=== PATIENT | female | born 1965 | race African-American/Black ===

== ENCOUNTER 2016-11-06 08:05 | Day surgery (SDC) | payer MEDICARE, OTHER ==
--- NOTE | ~2016-11-06 | EGD ---
EGD REPORT [facility] [address] [address] NAME: SANIA CRESPO : 61 STATUS : REG [facility]#: [id number] AGE: 51 ADM/REG DATE : 11/06/16 MR#: [id number] REPORT SERV DATE: 11/06/16 DICTATED BY: JOSELUIS SHELBY DATE: 11/06/16 REPORT STATUS : Draft TRANSCRIBED BY: [facility] DATE: 11/06/16 Endoscopy Center Patient Name: Sania Crespo Date of : 1965 Attending MD: JOSELUIS SHELBY MD Procedure Date No Time: 11/06/2016 Procedure: Colonoscopy Indications: Screening for colorectal malignant neoplasm Referring MD: DARION VIDES Medicines: Propofol per Anesthesia Complications: No immediate complications. Procedure: Pre-Anesthesia Assessment: - ASA Grade Assessment: II - A patient with mild systemic disease. After I obtained informed consent, the scope was passed under direct vision. Throughout the procedure, the patient's blood pressure, pulse, and oxygen saturations were monitored continuously. The CF [id number] was introduced through the anus and advanced to the terminal ileum. The colonoscopy was performed without difficulty. The patient tolerated the procedure well. The quality of the bowel preparation was good. Findings: The perianal and digital rectal examinations were normal. The terminal ileum appeared normal. The colon (entire examined portion) appeared normal. A sessile polyp was found in the proximal transverse colon. The polyp was 3 mm in size. The polyp was removed with a cold biopsy forceps. Resection and retrieval were complete. A sessile polyp was found in the distal transverse colon. The polyp was 5 mm in size. The polyp was removed with a cold snare. Resection and retrieval were complete. A sessile polyp was found in the proximal descending colon. The polyp was 6 mm in size. The polyp was removed with a hot snare. Resection and retrieval were complete. Non-bleeding internal hemorrhoids were found during retroflexion and were mild, medium-sized and Grade I (internal hemorrhoids that do not prolapse). Impression: - The examined portion of the ileum was normal. - The entire examined colon is normal. - One 3 mm polyp in the proximal transverse colon. Resected and retrieved. - One 5 mm polyp in the distal transverse colon. EGD REPORT [address] [address] NAME: SANIA CRESPO : [birth year] STATUS : REG [facility]#: [id number] AGE: 51 ADM/REG DATE : 11/06/16 MR#: [id number] REPORT SERV DATE: 11/06/16 DICTATED BY: JOSELUIS SHELBY DATE: 11/06/16 REPORT STATUS : Draft TRANSCRIBED BY: [employer] DATE: 11/06/16 Resected and retrieved. - One 6 mm polyp in the proximal descending colon. Resected and retrieved. - Non-bleeding internal hemorrhoids. Recommendation: - Patient has a contact number available for emergencies. The signs and symptoms of potential delayed complications were discussed with the patient. Return to normal activities tomorrow. Written discharge instructions were provided to the patient. - Return to previous diet. - Continue present medications. - Await pathology results. - Repeat colonoscopy in 3 - 5 years for surveillance based on pathology results. - Return to my office as previously scheduled. - Discharge patient to home. Procedure Code(s): --- Professional --- 82985, Colonoscopy, flexible, proximal to splenic flexure; with removal of tumor(s), polyp(s), or other lesion(s) by snare technique 38130, 59, Colonoscopy, flexible, proximal to splenic flexure; with biopsy, single or multiple Diagnosis Code(s): --- Professional --- K64.0, First degree hemorrhoids D12.4, Benign neoplasm of descending colon D12.3, Benign neoplasm of transverse colon Z12.11, Encounter for screening for malignant neoplasm of colon CPT copyright 2013 [employer]. All rights reserved. The codes documented in this report are preliminary and upon ship ceiler review may be revised to meet current compliance requirements. Joseluis Shelby MD JOSELUIS SHELBY MD 11/06/2016 10:24 AM This report has been signed electronically. Number of Addenda: 0 Note Initiated On: 11/06/2016 9:42 AM Scope Withdrawal Time 0 hours 15 minutes 52 seconds EGD REPORT [facility] [address] [address] NAME: SANIA CRESPO : [birth year] STATUS : REG [facility] PAT#: [id number] AGE: 51 ADM/REG DATE : 11/06/16 MR#: [id number] REPORT SERV DATE: 11/06/16 DICTATED BY: JOSELUIS SHELBY DATE: 11/06/16 REPORT STATUS : Draft TRANSCRIBED BY: [employer] DATE: 11/06/16 [address] [id number]
[~2016-11-06 08:05] MED LIST: ADVIL PO; ALEVE220 MG PO; DOES NOT KNOW MEDS; FLEXERIL5 MG PO; FLOVENT110 INH; INHALER INH; MUCUS RELIEF OR; NEUR300 PO; NORV10 PO; PEPCID40 MG OR; ZESTORETIC1 TA1 PO
== END 2016-11-06 23:59 | disposition home or self-care (01) ==
LOC: DMU 08:05
PROVIDERS: Internal Medicine Gastroenterology
PROC: 0DBL8ZZ Excision of Transverse Colon, Via Natural or Artificial Opening Endoscopic (ICD-10-PCS; principal; 2016-11-06 10:00)
PROC: 0DBM8ZZ Excision of Descending Colon, Via Natural or Artificial Opening Endoscopic (ICD-10-PCS; 2016-11-06 10:00)
DX: Z12.11 Encounter for screening for malignant neoplasm of colon (principal); K64.0 First degree hemorrhoids; D12.3 Benign neoplasm of transverse colon; D12.4 Benign neoplasm of descending colon; I10 Essential (primary) hypertension; K21.9 Gastro-esophageal reflux disease without esophagitis; J45.909 Unspecified asthma, uncomplicated; F17.200 Nicotine dependence, unspecified, uncomplicated; Z79.1 Long term (current) use of non-steroidal anti-inflammatories (NSAID); Z79.51 Long term (current) use of inhaled steroids; Z88.5 Allergy status to narcotic agent; Z79.899 Other long term (current) drug therapy
CPT/HCPCS: 88305

== ENCOUNTER 2016-11-07 05:04 | Observation (INO) | payer MEDICARE, OTHER ==
--- NOTE | ~2016-11-07 | CN ---
Consultation Report [place] [id number] [facility] [place]. [address] NAME: SANIA CRESPO : 61 STATUS : ADM Alisha PAT#: [id number] AGE: 51 ADM/REG DATE : 11/07/16 MR#: [id number] REPORT SERV DATE: 11/07/16 DICTATED BY: ANTONIO MARTE DATE: 11/07/16 REPORT STATUS : Draft TRANSCRIBED BY: JORDAN DATE: 11/07/16 CONSULTATION DATE OF CONSULTATION: Sania Crespo is a 51-year-old female, who enters with chest discomfort. REFERRING PHYSICIAN: Tj Bullock M.D. HISTORY OF PRESENT ILLNESS: Mrs. Sania Crespo underwent a routine screening colonoscopy yesterday. That night while watching TV, she developed a pressure in her chest which she said it felt like several people sitting on her chest. This radiated down her left arm and back and lasted for about 30 to 40 minutes. It then was relieved but then came back, and was off and on until coming to the emergency room. REVIEW OF SYSTEMS: No previous exertional discomfort, dyspnea, PND, KRAUS, palpitations, syncope, presyncope, fever, chills, change in bowel habits, and rashes. Rest is negative. PAST MEDICAL HISTORY: 1. Hypertension, longstanding. 2. GERD. SOCIAL HISTORY: She smokes, but does not drink. She is currently disabled, due to back pain. FAMILY HISTORY: Negative for early heart disease. PHYSICAL EXAMINATION: VITAL SIGNS: Blood pressure is 163/84, pulse is 75. She is afebrile. GENERAL: Resting comfortably. EYES: PERRLA. LUNGS: No labored use of accessory muscles. Without rales or wheezes. COR: PMI is not displaced. No thrills or heaves. NL S1 and S2. No S3, murmur, click or rub. PULSES: Carotids without bruits. ABD: +BS, nontender. EXT: No cyanosis, clubbing or edema. SKIN: No petechiae. NEURO: Alert and oriented. Does not appear anxious or depressed. LABORATORY EVALUATION: EKG shows no acute changes. Troponin is negative. ASSESSMENT: At this time, we will obtain a stress test, if second troponin is negative. Consultation Report [place] [id number] [facility]. [address] NAME: SANIA CRESPO : 61 STATUS : ADM Alisha PAT#: [id number] AGE: 51 ADM/REG DATE : 11/07/16 MR#: [id number] REPORT SERV DATE: 11/07/16 DICTATED BY: ANTONIO MARTE DATE: 11/07/16 REPORT STATUS : Draft TRANSCRIBED BY: JORDAN DATE: 11/07/16 GG/SANDRAL Antonio Marte M.D. / [id number] CC: Tj Bullock M.D.
--- NOTE | ~2016-11-07 | DS ---
Discharge Summary [facility] [address] [place]. [address] NAME: JERRI CRESPO : 61 STATUS : ADM Alisha PAT#: [id number] AGE: 51 ADM/REG DATE : 11/07/16 MR#: [id number] REPORT SERV DATE: 11/08/16 DICTATED BY: JOAN ALANIZ DATE: 11/08/16 REPORT STATUS : Draft TRANSCRIBED BY: [employer] DATE: 11/08/16 ADMISSION DATE: 11/07/2016 DISCHARGE DATE: 11/08/2016 HOSPITAL COURSE: This is a 51-year-old -[place] female known history of hypertension, as well as having a significant smoking history, at least 30 pack years, low back pain. She had a routine colonoscopy was uneventful in terms of postoperative course then started to develop chest pain, left shoulder and left arm numbness, tingling, had a leukocytosis and a CTA of the chest is negative. She also had a CT of the brain given her neurological symptoms that was also negative for any stroke or mass. Her pathology was indicative of stroke. The patient was noted to have significant troponin, anemia, elevated troponin 1.10, it is peak at 1.33. She had a cholesterol of , LDL of 181. Procalcitonin was negative despite leukocytosis. Her glucose on the day of discharge was 82. Recommend outpatient A1c. Blood cultures showed no growth to date. The patient had a heart catheterization for class IV angina and NSTEMI, showed severe flow-limiting lesion in mid LAD consistent with culprit for the patient's non- Q-wave RI, severe flow-limiting lesion, distal left circumflex, normal LVEDP, LVEF 50%. As a result, did a PCI of mid LAD with YESSY as well as a YESSY placement to the distal left circumflex, needs dual anti-platelet for at least a year, aspirin indefinitely. We will also place her on Backbone therapy of beta-blockade and ARB. We would hold her ARB, losartan if her systolic is less than 110. I placed her on Lipitor 40. The patient needs to stop smoking. Get an outpatient pulmonary function test in four weeks. Follow up with PCP in two weeks. Follow up Cardiology in four to eight weeks as well. DISCHARGE MEDICATIONS: Lipitor 40 p.o. daily, carvedilol 3.125 p.o. b.i.d., aspirin 81 p.o. daily, Plavix 75 p.o. daily, losartan 25 p.o. daily hold if systolic less than 110. The patient states she is going to quit cold turkey. DISCHARGE DIAGNOSES: 1. Guc-SW-yveehfram myocardial infarction. 2. Hyperlipidemia. 3. Gastroesophageal reflux disease. 4. Coronary artery disease. 5. Clinical chronic obstructive pulmonary disease. All questions were answered. It took well over 30 minutes to do. ERNESTINAT/JORDAN Joan Alaniz DO / [id number] Discharge Summary [address] [address] NAME: JERRI CRESPO : 61 STATUS : ADM Alisha PAT#: [id number] AGE: 51 ADM/REG DATE : 11/07/16 MR#: [id number] REPORT SERV DATE: 11/08/16 DICTATED BY: JOAN ALANIZ DATE: 11/08/16 REPORT STATUS : Draft TRANSCRIBED BY: JORDAN DATE: 11/08/16 CC: DO Abby Holland M.D.
--- NOTE | ~2016-11-07 | HP ---
History And Physical [place] [id number] [facility] [place]. [address] NAME: JERRI CRESPO : 61 STATUS : ADM Alisha PAT#: [id number] AGE: 51 ADM/REG DATE : 11/07/16 MR#: [id number] REPORT SERV DATE: 11/07/16 DICTATED BY: HUSSEIN CALLAHAN DATE: 11/07/16 REPORT STATUS : Draft TRANSCRIBED BY: [employer] DATE: 11/07/16 DATE OF ADMISSION: 11/07/2016 CHIEF COMPLAINT: Chest pain. HISTORY OF PRESENT ILLNESS: This is a 51-year-old female with history of hypertension and status post colonoscopy today which was done in routine followup for screening and who presents to the emergency room at [facility] with chest pain. History is obtained from the patient, and reviewing data available on the [employer] system. According to Mrs. Crespo she went home after her colonoscopy and she was told they did some scrapings there, otherwise it was uneventful. She was fine until about 10 o'clock at night, when she was in bed and laying down doing nearly nothing, when she started experiencing substernal chest pain. Chest pain was radiating to the left shoulder and into the left arm as well. Her arm started tingling and feeling numb as well. The pain was 10/10 in intensity lasting for about 15 to 20 minutes at a time, would go away and come back. She became concerned she was having a heart attack and decided to come to the emergency room. In the emergency room, initial workup revealed she had leukocytosis of white blood cell count of 21,800, troponin were negative. There were no EKG changes. A CTA of the chest, CT abdomen and pelvis, and CT of the brain were all unremarkable. Hospitalist Service is asked to admit her for further evaluation and treatment. At the time of my evaluation, Mrs. Crespo had no chest pain after she was treated in the emergency room. She denied any palpitations or orthopnea. She did have a cough, which she says is her usual attributed to her smoking habit. She denied any hemoptysis, night sweats, or weight loss. She did not have any falls or loss of consciousness. No history of fevers or chills. No history of nausea or vomiting, but she did have some diaphoresis with the pain. No history of dysuria, hematemesis, hematochezia, or hematuria. No other history of recent travel or exposures other than those mentioned above. PAST MEDICAL HISTORY: Significant for history of hypertension and routine colonoscopy that she had today. SOCIAL HISTORY: She has about 25- to 30-pack year history of smoking, continues to do so. Denied any alcohol use. She smokes marijuana at least twice daily. She is currently disabled due to her back pain. FAMILY HISTORY: Noncontributory. MEDICATIONS: Her medications at home were reviewed by me in the chart today and reordered by me. REVIEW OF SYSTEMS: As in history of present illness. All other systems were reviewed in detail and are quite History And Physical [address] [address] NAME: JERRI CRESPO : 61 STATUS : ADM Alisha PAT#: [id number] AGE: 51 ADM/REG DATE : 11/07/16 MR#: [id number] REPORT SERV DATE: 11/07/16 DICTATED BY: HUSSEIN CALLAHAN DATE: 11/07/16 REPORT STATUS : Draft TRANSCRIBED BY: JORDAN DATE: 11/07/16 unremarkable. PHYSICAL EXAMINATION: GENERAL: This is a pleasant 51-year-old, not in any acute distress. HEENT: Head is atraumatic and normocephalic. She is alert, awake, oriented to time, place, and person. Pupils are equal, reacting to light and accommodating. External ocular muscles are intact. Membranes are moist and pink. Sclerae are nonicteric. NECK: Supple with no jugular venous distention, lymphadenopathy, or thyromegaly. LUNGS: Clear to auscultation with no wheezes, rubs, or crackles. HEART: Heart sounds were regular with no murmurs, rubs, or gallops. ABDOMEN: Soft and nontender. Bowel sounds are present. EXTREMITIES: No cyanosis, clubbing, or edema. NEUROLOGIC: Grossly intact. No focal sensory or motor deficits. Higher functions appeared intact. Gait was not examined at this time. VITAL SIGNS: Her temperature today was 98.6, pulse 75, respirations 20 a minute, blood pressure was 163/84, and oxygen saturations were 100% breathing 2 L of oxygen via nasal cannula. LABORATORY DATA: Reviewed on the [employer] system showed a sodium of 143, potassium 3.4, chloride 109, CO2 of 23, BUN was 12 with a creatinine of 1.05, and blood glucose was 116. Her alkaline phosphatase was 118. ALT and AST were within normal limits. Lipase was 168 today. [place] [address], normal hemoglobin, hematocrit, and platelet count. Her troponin was 0.02 today. Urinalysis was grossly unremarkable. Films of the x-ray of the chest, CTA of the chest, CT of the abdomen and pelvis, and CT of the brain were all reviewed on the PACS today and interpreted by me. Official Radiology comments were also reviewed. All of these are unremarkable. There was no pulmonary embolism. A 12-lead EKG done in the emergency room was reviewed and interpreted by me. There is normal sinus rhythm with a rate of 76 per minute without any acute ST-T changes. IMPRESSION: 1. Chest pain. 2. Leukocytosis. 3. Hypokalemia. 4. Uncontrolled hypertension. 5. Status post colonoscopy. PLAN: We will admit Mrs. Crespo to the Hospitalist Service with telemetry for a 24-hour observation period. We will follow serial cardiac enzymes to rule out acute coronary History And Physical [address] [address] NAME: JERRI CRESPO : 61 STATUS : ADM Alisha PAT#: [id number] AGE: 51 ADM/REG DATE : 11/07/16 MR#: [id number] REPORT SERV DATE: 11/07/16 DICTATED BY: HUSSEIN CALLAHAN DATE: 11/07/16 REPORT STATUS : Draft TRANSCRIBED BY: JORDAN DATE: 11/07/16 syndrome and go ahead and consult Cardiology Service to see her as well. She has had no EKG changes. Her troponins were negative as mentioned above. We will go ahead and replace her potassium, follow chemistry and electrolytes, replace per protocol. We will control her blood pressure with home medications and if needed hydralazine. We will place her on nitroglycerin paste and give her a full dose aspirin as well. She was taken off her aspirin for the colonoscopy prep. She will also be placed on unfractionated heparin for DVT prophylaxis while here. I have discussed the above plans with the patient. Her questions were answered and she is agreeable to the above recommendations. Hospitalist Service will be following her during her stay here. /JORDAN Hussein Callahan M.D. / [id number] CC: Ana Pedraza M.D.
[2016-11-07 02:13] LABS: BASOPHILS 0.1 %; BASOPHILS ABSOLUTE 0.03 10/3/uL (0.0-0.16); EOSINOPHILS 1.4 %; HEMATOCRIT 39.5 % (36.0-48.0); HEMOGLOBIN 13.2 g/dL (12.0-16.0); IMMATURE GRANULOCYTES 0.3 %; IMMATURE GRANULOCYTES ABSOLUTE 0.07 10/3/uL (0.0-0.11); LYMPHOCYTES 47.3 %; MEAN CORPUS HGB CONC 33.4 g/dL (32.0-36.0); MEAN CORPUSCULAR HEMOGLOB 26.9 pg (26.0-34.0); MEAN CORPUSCULAR VOLUME 80.4 fL (80-100); MONOCYTES 4.2 %; MONOCYTES ABSOLUTE 0.92 10/3/uL (0.21-1.20); NEUTROPHILS 46.7 %; NEUTROPHILS ABSOLUTE 10.15 10/3/uL (2.02-8.40); PLATELET COUNT 356 10/3/uL (150-400); RBC DISTRIBUTION WIDTH 14.5 % (12.0-16.0); RED CELL COUNT 4.91 10/6/uL (4.0-5.6); WHITE BLOOD CELLS 21.8 10/3/uL (4.5-10.5)
[2016-11-07 02:16] LABS: MANUAL DIFF NO %
[2016-11-07 02:22] LABS: INTERNATIONAL NORMAL RATI 1.1 UNITS (-); PARTIAL THROMBO TIME 36.1 SEC (22.5-37.2); PROTIME (NOT ORD) 13.8 SEC (12.0-14.5)
[2016-11-07 02:28] LABS: CALCIUM, SERUM 9.4 MG/DL (8.5-10.4); CHEST PAIN PROFILE TAT 0 Hrs 19 Mins; CHLORIDE, SERUM 109 MMOL/L (96-112); CO2 (CARBON DIOXIDE) 23 MMOL/L (24-34); CREATININE 1.05 MG/DL (0.55-1.02); GFR AFRICAN AMERICAN 70 ML/MIN (>=60); GFR NON AFRICAN AMERICAN 61 ML/MIN (>=60); GLUCOSE, SERUM 116 MG/DL (60-99); POTASSIUM, SERUM 3.4 MMOL/L (3.5-5.3); SODIUM, SERUM 143 MMOL/L (135-148); TROPONIN I <0.02 NG/ML (<0.05)
[2016-11-07 02:29] LABS: BUN (BLOOD UREA NITROGEN) 12 MG/DL (6-23)
[2016-11-07 02:30] LABS: EOSINOPHILS 2 %; EOSINOPHILS ABSOLUTE (CALC) 0.44 10/3/uL (0.0-0.53); ER DIFF TAT 0 Hrs 21 Mins; IMMATURE GRANS ABSOLUTE (CALC) 0.22 10/3/uL (0.0-0.11); LYMPHOCYTES 43 %; LYMPHOCYTES ABSOLUTE (CALC) 9.37 10/3/uL (0.67-4.30); METAMYELOCYTES 1 %; MONOCYTES 1 %; MONOCYTES ABSOLUTE (CALC) 0.22 10/3/uL (0.21-1.20); NEUTROPHILS ABSOLUTE (CALC) 11.55 10/3/uL (2.02-8.40); SEGMENTED NEUTROPHIL (0) 53 %; TOTAL NUCLEATED CELLS 100
[2016-11-07 03:59] LABS: ASCORBIC ACID (UR NOT ORDER) NEG (NEG); BILIRUBIN, URINE NEGATIVE (NEG); ER URINALYSIS TAT 0 Hrs 00 Mins; KETONE, URINE NEGATIVE (NEG); LEUKOCYTE ESTERASE(NOT OR NEG (NEG); NITRITE (URINE) NEG (NEG); WBC (NOT ORDERED) (RFLEX) 0 (0-5)
[2016-11-07 04:28] LABS: ALBUMIN 3.6 G/DL (3.5-5.0); ALKALINE PHOSPHATASE 118 U/L (45-117); SGOT(AST) 14 U/L (5-40); SGPT(ALT) 18 U/L (5-65); TOTAL BILIRUBIN 0.2 MG/DL (0-1.2); TOTAL PROTEIN 8.2 G/DL (6.0-8.5)
[2016-11-07 04:31] LABS: DIRECT BILIRUBIN < 0.1 MG/DL (0.0-0.4); INDIRECT BILIRUBIN(NOT ORDER) 0.1 MG/DL (0.1-0.9)
[2016-11-07 05:40] LABS: PROCALCITONIN <0.05 ng/mL (<0.5)
[2016-11-07 09:35] LABS: TROPONIN I 1.1 NG/ML (<0.05)
[2016-11-07 12:51] LABS: CHOL/HDL RATIO(NOT ORDER) 5.2 (0-5)
[2016-11-07 16:31] LABS: CK-MB 3.8 NG/ML; CPK 114 U/L (0-200)
[2016-11-07 16:32] LABS: TROPONIN I 1.33 NG/ML (<0.05)
[2016-11-08 05:13] LABS: HEMATOCRIT 36.6 % (36.0-48.0); MANUAL DIFF YES %; MEAN CORPUS HGB CONC 32.8 g/dL (32.0-36.0); MEAN CORPUSCULAR VOLUME 79.4 fL (80-100); MEAN PLATELET VOLUME 8.8 fL (9.2-13.0); PLATELET COUNT 368 10/3/uL (150-400); RBC DISTRIBUTION WIDTH 14.7 % (12.0-16.0); RED CELL COUNT 4.61 10/6/uL (4.0-5.6); WHITE BLOOD CELLS 14.4 10/3/uL (4.5-10.5)
[2016-11-08 05:37] LABS: BUN (BLOOD UREA NITROGEN) 11 MG/DL (6-23); CALCIUM, SERUM 9.1 MG/DL (8.5-10.4); CHLORIDE, SERUM 106 MMOL/L (96-112); CK-MB 2.7 NG/ML; CO2 (CARBON DIOXIDE) 25 MMOL/L (24-34); CPK 105 U/L (0-200); CREATININE 0.92 MG/DL (0.55-1.02); GFR AFRICAN AMERICAN 82 ML/MIN (>=60); GFR NON AFRICAN AMERICAN 71 ML/MIN (>=60); GLUCOSE, SERUM 96 MG/DL (60-99); PHOSPHORUS, SERUM 4.2 MG/DL (2.5-4.5); POTASSIUM, SERUM 4.4 MMOL/L (3.5-5.3); SODIUM, SERUM 140 MMOL/L (135-148)
[2016-11-08 05:38] LABS: TROPONIN I 0.61 NG/ML (<0.05)
[2016-11-08 05:55] LABS: EOSINOPHILS 2 %; EOSINOPHILS ABSOLUTE (CALC) 0.29 10/3/uL (0.0-0.53); LYMPHOCYTES 29 %; LYMPHOCYTES ABSOLUTE (CALC) 4.18 10/3/uL (0.67-4.30); MONOCYTES 6 %; MONOCYTES ABSOLUTE (CALC) 0.86 10/3/uL (0.21-1.20); NEUTROPHILS ABSOLUTE (CALC) 9.07 10/3/uL (2.02-8.40); PLATELET ESTIMATE ADQ (ADEQUATE); RBC MORPHOLOGY NORM (NORMAL); SEGMENTED NEUTROPHIL (0) 63 %; TOTAL NUCLEATED CELLS 100
[2016-11-08 07:10] LABS: PROCALCITONIN <0.05 ng/mL (<0.5)
[2016-11-08] MEDS ORDERED: ASAB PO (07:31)
[2016-11-08] MEDS ORDERED: COREG3 PO (07:32)
[2016-11-08] MEDS ORDERED: LIPITOR40 PO (07:32)
[2016-11-08] MEDS ORDERED: PLAVIX PO (07:32)
[2016-11-08] MEDS ORDERED: COZ25 PO (08:57)
== END 2016-11-08 09:30 | disposition home or self-care (01) ==
LOC: ER 05:04 → CDU1 06:15 → CDU2 07:06 → SSU1 16:08
PROVIDERS: Internal Medicine Cardiovascular Disease; Internal Medicine Pulmonary Disease; Specialist
PROC: 4A023N7 Measurement of Cardiac Sampling and Pressure, Left Heart, Percutaneous Approach (ICD-10-PCS; principal; 2016-11-07)
PROC: B2151ZZ Fluoroscopy of Left Heart using Low Osmolar Contrast (ICD-10-PCS; 2016-11-07)
PROC: 027135Z Dilation of Coronary Artery, Two Arteries with Two Drug-eluting Intraluminal Devices, Percutaneous Approach (ICD-10-PCS; 2016-11-07)
DX: I25.119 Atherosclerotic heart disease of native coronary artery with unspecified angina pectoris (principal); I21.4 Non-ST elevation (NSTEMI) myocardial infarction; I10 Essential (primary) hypertension; D72.829 Elevated white blood cell count, unspecified; F17.210 Nicotine dependence, cigarettes, uncomplicated; F12.90 Cannabis use, unspecified, uncomplicated; E87.6 Hypokalemia; Z88.5 Allergy status to narcotic agent; Z79.82 Long term (current) use of aspirin; Z79.02 Long term (current) use of antithrombotics/antiplatelets; Z79.899 Other long term (current) drug therapy; Z98.890 Other specified postprocedural states
CPT/HCPCS: 71020; 71275; 74177; 80048; 80061; 80076; 81001; 82550; 82553; 83690; 83735; 84100; 84145; 84484; 84703; 85025; 85347; 85610; 85730; 87040; 93005; 93458; 96374; 96375; 96376; 99152; 99153; 99285; A9270-GY; C1725; C1769; C1874; C1887; C1894; C9600; G0378; J2250; J2405; J3010; Q9967